=== PATIENT | female | born 1960 | race Hispanic/Latino ===

== ENCOUNTER 2021-10-30 09:04 | Emergency (ER) | payer BC, OTHER ==
[~2021-10-30] VITALS: Ht 167.6 cm; Wt 68.0 kg
[2021-10-30] MEDS ORDERED: LIDOCAINE JELLY 2% 10ML URO-JET TOP ONE (09:15)
[2021-10-30] MEDS ORDERED: LIDOCAINE HCL 2% JELLY 5 ML TUBE TOP ONE (09:15)
== END 2021-10-30 09:54 | disposition home or self-care (01) ==
LOC: ER 09:08
DX: G44.009 Cluster headache syndrome, unspecified, not intractable (principal); I10 Essential (primary) hypertension; E11.9 Type 2 diabetes mellitus without complications
CPT/HCPCS: 99284; J2001